=== PATIENT | male | born 1965 | race Caucasian/White ===

== ENCOUNTER 2019-08-06 12:51 | Inpatient (IN) ==
[2019-08-06] MEDS ORDERED: ALBUTEROL 2.5 MG/3 ML NEB RESP TX STA (13:11)
[2019-08-06 13:22] LABS: Basophils # 0.1 10*3/uL (0.0-0.2); Basophils % 0.5 % (0.0-0.8); Eosinophils # 0.7 10*3/uL (0.0-0.87); Eosinophils % 4.5 % (0.00-10.9); Hematocrit 47.9 VOL% (42.0-52.0); Immature Granulocytes % 1.7 %; Immature Granulocytes Absolute 0.25 #; Lymphocytes # 2.6 10*3/uL (1.4-4.0); Lymphocytes % 17.3 % (21.2-54.2); Mean Corpuscular HGB Conc 31.3 GM/DL (32-36); Mean Corpuscular Volume 91.4 FL (87-102); Mean Platelet Volume 10.2 FL (9.6-12.0); Monocytes % 6.5 % (1.7-12.7); Neutrophils % 69.5 % (38.7-73.9); Platelet Count 218 T/CUMM (130-400); Red Blood Count 5.24 MC/CUMM (3.8-5.5); White Blood Count 14.8 T/CUMM (4-12)
[2019-08-06 13:43] LABS: Alanine Aminotransferase 41 U/L (16-61); Albumin 3.2 G/DL (3.4-5.0); Alkaline Phosphatase 117 U/L (45-117); Aspartate Amino Transferase 16 U/L (0-37); Bilirubin,Total < 0.39 MG/DL (0.2-1.0); Blood Urea Nitrogen 15 MG/DL (7-18); Calcium 9.3 MG/DL (8.5-10.1); Estimated Glom Filtration Rate 149 ML/MIN; Glucose 176 MG/DL (74-106); Osmolality,Calculated 281.5 MOS/KG (273-304); Total Protein 7.1 G/DL (6.4-8.3)
[2019-08-06] MEDS ORDERED: methylPREDNISolone SOD SUC 125 MG/2 ML VIAL IV STA (13:51)
[2019-08-06] MEDS ORDERED: LEVOFLOXACIN INJ 500 MG in PREMIX 1 EACH IV STA (13:51)
[2019-08-06] MEDS ORDERED: ALBUTEROL 2.5 MG/3 ML NEB RESP TX SCH (14:00)
[2019-08-06] MEDS ORDERED: ONDANSETRON 4 MG/2 ML VIAL IV PRN (14:46)
[2019-08-06] MEDS ORDERED: ACETAMINOPHEN 325 MG TABLET PO PRN (14:46)
[2019-08-06] MEDS ORDERED: PROMETHAZINE 25 MG/1 ML VIAL IM PRN (14:46)
[2019-08-06] MEDS: PANTOPRAZOLE 40 MG TABLET PO SCH (15:14)
[2019-08-06] MEDS ORDERED: GLUCAGON 1 MG VIAL IM PRN (15:36)
[2019-08-06] MEDS ORDERED: DEXTROSE 50% 25 GM/50 ML VIAL IV PRN (15:36)
[2019-08-06] MEDS ORDERED: POTASSIUM CHLORIDE 20 MEQ TABLET PO PRN (15:37)
[2019-08-06] MEDS ORDERED: FUROSEMIDE 40 MG/4 ML VIAL IV SCH (16:00)
[2019-08-06] MEDS ORDERED: LEVOFLOXACIN INJ 750 MG in PREMIX 1 EACH IV SCH (16:00)
[2019-08-06] MEDS ORDERED: PNEUMOCOCCAL VACCINE (23 VALENT) 0.5 ML VIAL IM ONE (16:28)
[2019-08-06] MEDS ORDERED: INFLUENZA VIRUS VACCINE 0.5 ML SYRINGE IM ONE (16:28)
[2019-08-06] MEDS: methylPREDNISolone SOD SUC 40 MG/1 ML VIAL IV SCH (16:56)
[2019-08-06] MEDS: INSULIN REGULAR 100 UNIT/ML SUBCUT SCH ×2 (16:56→20:44)
[2019-08-06] MEDS ORDERED: metOLazone 5 MG TABLET PO SCH (17:00)
[2019-08-06] MEDS: FUROSEMIDE INJ 100 MG in SODIUM CHLORIDE 0.9% 90 ML IV SCH (18:27)
[2019-08-06] MEDS ORDERED: metOLazone 5 MG TABLET PO ONE (18:30)
[2019-08-06] MEDS: ALBUTEROL/IPRATROPIUM 3 ML NEB RESP TX SCH (19:01)
[2019-08-06] MEDS: ENOXAPARIN 40 MG/0.4 ML SYRINGE SUBCUT SCH (20:45)
[2019-08-06] MEDS: INSULIN GLARGINE 100 UNIT/ML SUBCUT SCH (20:45)
[2019-08-07] MEDS ORDERED: traZODone 50 MG TABLET PO ONE (00:17)
[2019-08-07] MEDS: ALBUTEROL/IPRATROPIUM 3 ML NEB RESP TX SCH ×4 (00:42→19:43)
[2019-08-07] MEDS: methylPREDNISolone SOD SUC 40 MG/1 ML VIAL IV SCH ×3 (04:34→21:18)
[2019-08-07 07:50] LABS: Basophils % 0.2 % (0.0-0.8); Eosinophils % 0.1 % (0.00-10.9); Hematocrit 46.9 VOL% (42.0-52.0); Hemoglobin 14.9 GM/DL (14.0-18.0); Immature Granulocytes % 1.6 %; Immature Granulocytes Absolute 0.29 #; Lymphocytes # 1.5 10*3/uL (1.4-4.0); Lymphocytes % 8.7 % (21.2-54.2); Mean Corpuscular HGB Conc 31.8 GM/DL (32-36); Mean Corpuscular Volume 89.7 FL (87-102); Mean Platelet Volume 11.3 FL (9.6-12.0); Monocytes % 4.3 % (1.7-12.7); Neutrophils % 85.1 % (38.7-73.9); Platelet Count 255 T/CUMM (130-400); Red Blood Count 5.23 MC/CUMM (3.8-5.5); Red Cell Distribution Width 14.7 % (9.3-17.3); White Blood Count 17.7 T/CUMM (4-12)
[2019-08-07 08:22] LABS: Albumin 3.3 G/DL (3.4-5.0); Calcium 9.8 MG/DL (8.5-10.1); Osmolality,Calculated 277.8 MOS/KG (273-304); Risk Ratio 4.17; Thyroid Stimulating Hormone 1.21 uIU/ml (0.358-3.74); Total Protein 7.4 G/DL (6.4-8.3); VLDL CHOLESTEROL 15.8 MG/DL
[2019-08-07] MEDS: PANTOPRAZOLE 40 MG TABLET PO SCH (08:26)
[2019-08-07] MEDS: LEVOFLOXACIN INJ 750 MG in PREMIX 1 EACH IV SCH (08:26)
[2019-08-07] MEDS: INSULIN REGULAR 100 UNIT/ML SUBCUT SCH ×4 (08:26→21:22)
[2019-08-07] MEDS ORDERED: metOLazone 2.5 MG TABLET PO SCH (11:30)
[2019-08-07] MEDS: GABAPENTIN 600 MG TABLET PO SCH ×2 (11:42→21:18)
[2019-08-07] MEDS ORDERED: COLCHICINE 0.6 MG CAPSULE PO PRN (12:00)
[2019-08-07] MEDS: busPIRone 10 MG TABLET PO SCH ×2 (15:08→21:18)
[2019-08-07] MEDS: BUDESONIDE/FORMOTEROL 160-4.5 INHALER 6 GM INH SCH ×2 (15:08→21:22)
[2019-08-07] MEDS: ARIPiprazole 10 MG TABLET PO SCH (15:09)
[2019-08-07] MEDS: NEBIVOLOL 10 MG TABLET PO SCH (15:09)
[2019-08-07] MEDS: FUROSEMIDE INJ 100 MG in SODIUM CHLORIDE 0.9% 90 ML IV SCH (15:09)
[2019-08-07] MEDS ORDERED: VENLAFAXINE 75 MG TABLET PO SCH (21:00)
[2019-08-07] MEDS ORDERED: ALLOPURINOL 300 MG TABLET PO SCH (21:00)
[2019-08-07] MEDS ORDERED: MONTELUKAST 10 MG TABLET PO SCH (21:00)
[2019-08-07] MEDS: ENOXAPARIN 40 MG/0.4 ML SYRINGE SUBCUT SCH (21:18)
[2019-08-07] MEDS: INSULIN GLARGINE 100 UNIT/ML SUBCUT SCH (21:23)
[2019-08-08] MEDS: ALBUTEROL/IPRATROPIUM 3 ML NEB RESP TX SCH ×2 (00:53→07:26)
[2019-08-08] MEDS: FUROSEMIDE INJ 100 MG in SODIUM CHLORIDE 0.9% 90 ML IV SCH (01:42)
[2019-08-08] MEDS: methylPREDNISolone SOD SUC 40 MG/1 ML VIAL IV SCH ×2 (03:19→08:50)
[2019-08-08 05:11] LABS: Basophils # 0.1 10*3/uL (0.0-0.2); Basophils % 0.2 % (0.0-0.8); Hematocrit 47.3 VOL% (42.0-52.0); Hemoglobin 15.1 GM/DL (14.0-18.0); Immature Granulocytes % 1.3 %; Immature Granulocytes Absolute 0.27 #; Lymphocytes # 1.9 10*3/uL (1.4-4.0); Lymphocytes % 9.5 % (21.2-54.2); Mean Corpuscular HGB Conc 31.9 GM/DL (32-36); Mean Corpuscular Volume 89.2 FL (87-102); Mean Platelet Volume 10.8 FL (9.6-12.0); Monocytes % 6.1 % (1.7-12.7); Neutrophils % 82.9 % (38.7-73.9); Platelet Count 267 T/CUMM (130-400); Red Cell Distribution Width 14.6 % (9.3-17.3); White Blood Count 20.3 T/CUMM (4-12)
[2019-08-08 05:41] LABS: Calcium 9.5 MG/DL (8.5-10.1); Osmolality,Calculated 277.5 MOS/KG (273-304)
[2019-08-08 05:56] LABS: Band Neutrophils 1 % (0-10); Lymphocytes 10 % (20-55); Segmented Neutrophils 84 % (50-85); Total Cells Counted 100
[2019-08-08 05:57] LABS: Platelet Estimate Normal
[2019-08-08 05:58] LABS: Hypochromasia Slight
[2019-08-08 08:37] VITALS: BP 101/75
[2019-08-08] MEDS: ARIPiprazole 10 MG TABLET PO SCH (08:48)
[2019-08-08] MEDS: GABAPENTIN 600 MG TABLET PO SCH (08:48)
[2019-08-08] MEDS: PANTOPRAZOLE 40 MG TABLET PO SCH (08:49)
[2019-08-08] MEDS: INSULIN REGULAR 100 UNIT/ML SUBCUT SCH ×2 (08:50→12:08)
[2019-08-08] MEDS ORDERED: VICTOZA SUBCUT SCH (09:00)
[2019-08-08] MEDS: busPIRone 10 MG TABLET PO SCH (09:00)
[2019-08-08] MEDS: LEVOFLOXACIN INJ 750 MG in PREMIX 1 EACH IV SCH (09:00)
[2019-08-08] MEDS: BUDESONIDE/FORMOTEROL 160-4.5 INHALER 6 GM INH SCH (09:00)
[2019-08-08] MEDS: NEBIVOLOL 10 MG TABLET PO SCH (10:30)
== END 2019-08-08 12:00 | DRG 292 ==
LOC: N.ED 12:51 → N.EDINP 12:51 → N.2E 15:37
PROVIDERS: ADMIT Internal Medicine; ATTEND Internal Medicine